=== PATIENT | male | born 1975 | race Caucasian/White ===

== ENCOUNTER 2018-02-08 19:31 | Emergency (ER) | payer OTHER ==
[2018-02-08 19:35] VITALS: BP 154/95; PULSE 65; RESP 17; TEMP 97.6; O2SAT 100
[2018-02-08] MEDS ORDERED: Amoxicillin-Clav 875-125 mg Tab PO STA (20:02)
--- NOTE | 2018-02-08 20:11 | ED PDOC ---
HPI: CCC, URI, Sore Throat Time Seen by Provider: 02/08/18 19:38 Chief Complaint (Nursing): ENT Problem Chief Complaint (Provider): ENT Problem History Per: Patient History/Exam Limitations: no limitations Onset/Duration Of Symptoms: Days Current Symptoms Are (Timing): Still Present Location Of Pain: Ear(s), Sinus/es Associated Symptoms: Cough, Nasal Congestion. denies: Fever, Chills, Nausea, Vomiting, Diarrhea Additional Complaint(s): Jabier Jeffries is a 42 year old male with a past medical history of GERD and hyperte nsion who is presenting to the ED for evaluation of right ear pain and cold like symptoms onset about a week ago. Patient states that last night he felt a fullness sensation in his right ear associated with difficulty hearing from the affected ear. He reports right ear pain is radiating to face and jaw and is unrelieved by over the counter remedies, none of which were taken today prior to arrival. Patient also states that he has had nasal congestion associated with a slight cough but denies any fever, chills, abdominal pain, chest pain, SOB, nausea, vomiting, diarrhea, neck pain/stiffness, headache, or dizziness. PMD: Luis Manuel Past Medical History Reviewed: Historical Data, Nursing Documentation, Vital Signs Vital Signs: Last Vital Signs Temp 97.6 F 02/08/18 19:33 Pulse 65 02/08/18 19:33 Resp 17 02/08/18 19:33 BP 154/95 H 02/08/18 19:33 Pulse Ox 100 02/08/18 19:33 - Medical History PMH: GERD, HTN - Surgical History Other surgeries: right hand surgery s/p fracture - Family History Family History: States: Unknown Family Hx - Home Medications Home Medications: Ambulatory Orders Medication Instructions Recorded Cyclobenzaprine [Flexeril] 5 mg PO Q8 PRN #15 tab 08/29/15 Amoxicillin/Clavulanate [Augmentin 1 tab PO BID #14 tab 02/08/18 875 MG-125 MG] Ibuprofen [Motrin Tab] 800 mg PO Q8 PRN #21 tab 02/08/18 - Allergies Allergies/Adverse Reactions: Allergies Allergy/AdvReac Type Severity Reaction Status Date / Time albuterol Allergy PVC's Verified 02/08/18 19:35 Review of Systems ROS Statement: Except As Marked, All Systems Reviewed And Found Negative Constitutional: Negative for: Fever, Chills ENT: Positive for: Ear Pain, Nose Congestion Cardiovascular: Negative for: Chest Pain Respiratory: Positive for: Cough Gastrointestinal: Negative for: Nausea, Vomiting, Abdominal Pain, Diarrhea Neurological: Negative for: Headache, Dizziness Physical Exam - Reviewed Nursing Documentation Reviewed: Yes Vital Signs Reviewed: Yes - Physical Exam Comments: GENERAL APPEARANCE: Patient is awake, alert, oriented x 3, in no acute distress. Resting comfortably. SKIN: Warm, dry; (-) cyanosis. ENMT: Canals: (-) cerumen impaction (-) erythema (-) exudate. TMs: (+) right TM bulging and (+) erythema to right TM, (-)effusion, (-) perforation,(-) vesicles, other ear normal. Maxillary sinuses : (+) mild tenderness to right maxillary sinus. (-) TMJ tenderness. Pharynx: Clear; uvula midline (-) erythema, (-) exudate. Airway patent: (-) stridor. NECK: Supple, FROM (-) stiffness, (-) tenderness, (-) lymphadenopathy. LUNGS: clear to auscultation bilaterally (-) rales (-) wheezing, (-) rhonchi. Respirations even and nonlabored. CARDIAC: RRR - ECG O2 Sat by Pulse Oximetry: 100 (RA) Pulse Ox Interpretation: Normal Medical Decision Making Medical Decision Making: Time: 20:00 Impression: Otitis Media, possible sinusitis Plan: --Augmentin 1 tab PO --Toradol 30 mg IM offered however patient refused. --Re-evaluation 2034 On re-evaluation, patient offers no additional complaints. On exam, patient remains AAOx3, in no acute distress. Lungs clear to auscultation, cardiac RRR, repeat neuro exam shows no focal findings. Vitals stable. Lab/Diagnostic results d/w the patient in great detail. Diagnosis of otitis me mariia, sinusitis d/w the patient. Based on history, exam and diagnostic results, plan will be for outpatient follow up with PMD/ENT. Patient instructed to follow-up with pmd / referral provided / the clinic in 1- 2 days without fail. Advised to take medication as prescribed. Return to the emergency room at any time for any new or worsening symptoms. Patient states he fully agrees with and understands discharge instructions. States that he agrees with the plan and disposition. Verbalized and repeated discharge instructions and plan. I have given the patient opportunity to ask any additional questions. Scribe Attestation: Documented by Pauline Flowers, acting as a scribe for Karen Ramirez PA-C. Provider Scribe Attestation: All medical record entries made by the Scribe were at my direction and personally dictated by me. I have reviewed the chart and agree that the record accurately reflects my personal performance of the history, physical exam, medical decision making, and the department course for this patient. I have also personally directed, reviewed, and agree with the discharge instructions and disposition. Disposition - Clinical Impression Clinical Impression: Right ear pain, Sinusitis, Otitis media - Patient ED Disposition Is Patient to be Admitted: No Counseled Patient/Family Regarding: Studies Performed, Diagnosis, Need For Followup, Rx Given - Disposition Referrals: Les Eduardo MD [Staff Provider] - Disposition: Routine/Home Disposition Time: 20:35 Condition: STABLE Additional Instructions: The emergency medical care you received today was directed at your acute symptoms. If you were prescribed any medication, please fill it and take as directed. It may take several days for your symptoms to resolve. Return to the Emergency Department if your symptoms worsen, do not improve, or if you have any other problems. Please contact your doctor in 2 days for re-evaluation and follow up / or call one of the physicians/clinics you have been referred to that are listed on the Patient Visit Information form that is included in your discharge packet. Bring any paperwork you were given at discharge with you along with any medications you are taking to your follow up visit. Our treatment cannot replace ongoing medical care by a primary care provider (PCP) outside of the emergency department. Prescriptions: Amoxicillin/Clavulanate [Augmentin 875 MG-125 MG] 1 tab PO BID #14 tab Ibuprofen [Motrin Tab] 800 mg PO Q8 PRN #21 tab PRN Reason: Pain, Moderate (4-7) Instructions: Sinusitis in Adults, Ear Infections (Otitis Media) (DC) Forms: [facility] (Sammarinese) Print Language: HEBREW - POA Present On Arrival: None
[2018-02-08] MEDS ORDERED: Amoxicillin-Clav 875-125 mg Tab PO ONE (20:28)
== END 2018-02-08 20:53 | disposition home or self-care (01) ==
LOC: H.ER 19:31
DX: H66.91 Otitis media, unspecified, right ear (principal); J32.9 Chronic sinusitis, unspecified; I10 Essential (primary) hypertension